=== PATIENT | male | born 1995 | race Caucasian/White ===

== ENCOUNTER 2023-11-19 19:53 | Emergency (ER) | payer OTHER ==
[~2023-11-19] VITALS: Ht 177.8 cm; Wt 142.9 kg
[2023-11-19 20:11] VITALS: BP_SYST 136; PULSE 67; RESP 20; TEMP 97.4; O2SAT 96
[2023-11-19] MEDS: ACETAMINOPHEN 500 MG TABLET PO ONE (23:12)
[2023-11-19] MEDS: KETOROLAC TROMETHAMINE 30 MG VIAL IM ONE (23:12)
[2023-11-19 23:18] VITALS: BP_SYST 136; PULSE 67; RESP 20; TEMP 97.4; O2SAT 96
[2023-11-19 23:26] LABS: BILIRUBIN,URINE NEGATIVE (NEGATIVE); BLOOD, URINE NEGATIVE (NEGATIVE); CLARITY/URINE CLEAR (CLEAR); COLOR,URINE YELLOW (YELLOW); GLUCOSE,URINE NEGATIVE (NEGATIVE); KETONES,URINE NEGATIVE (NEGATIVE); LEUKOCYTE ESTERASE ,URINE NEGATIVE (NEGATIVE); NITRITE, URINE NEGATIVE (NEGATIVE); PROTEIN URINE NEGATIVE (NEGATIVE); UROBILINOGEN,URINE 0.2 (0.2-1.0)
== END 2023-11-19 23:18 | disposition home or self-care (01) ==
LOC: SED 19:53
DX: M54.50 Low back pain, unspecified (principal); Z79.899 Other long term (current) drug therapy
CPT/HCPCS: 99283; 81001; 96372; 81003; J1885